=== PATIENT | male | born 1945 | race African-American/Black ===

== ENCOUNTER 2019-10-02 14:38 | Emergency (ER) | payer OTHER ==
[~2019-10-02] VITALS: Ht 182.9 cm; Wt 117.9 kg
[2019-10-02 14:50] VITALS: Ht 182.9 cm; Wt 117.9 kg
[2019-10-02 15:50] LABS: BASOPHIL % 0.6 % (0-2); PLATELET COUNT 188 x10^3mcL (130-400); RED CELL DISTRIBUTION WIDTH 14.5 % (11.5-14.5)
[2019-10-02 16:15] LABS: UA SPECIFIC GRAVITY 1.015 (1.005-1.035); microscopic required? YES; urine erythrocyte NEGATIVE (NEGATIVE)
[2019-10-02 16:16] LABS: CALCIUM 9.9 mg/dL (8.5-10.1); CARBON DIOXIDE 32.2 mmol/L (21-32); CHLORIDE SERUM 107 mmol/L (98-107); CREATININE SERUM 1.6 mg/dL (0.7-1.3); GLUCOSE SERUM 89 mg/dL (74-106); POTASSIUM SERUM 4.2 mmol/L (3.5-5.1); SODIUM SERUM 143 mmol/L (136-145)
[2019-10-02 16:20] LABS: ALKALINE PHOSPHATASE 106 U/L (46-116); ALT/SGPT 19 U/L (16-63); AST/SGOT 23 U/L (15-37); BILIRUBIN TOTAL 0.51 mg/dL (0.20-1.00); TOTAL PROTEIN, SERUM 7.7 g/dL (6.4-8.2)
[2019-10-02 16:32] LABS: AMPHETAMINE QUAL UR NONE DETECTED (See below)
[2019-10-02 16:33] LABS: ALBUMIN 3.3 g/dL (3.4-5.0)
[2019-10-02 21:46] VITALS: BP 145/80
== END 2019-10-02 21:47 ==
LOC: ED 14:38
PROVIDERS: Emergency Medicine
DX: I48.91 Unspecified atrial fibrillation (principal); I11.0 Hypertensive heart disease with heart failure; I50.9 Heart failure, unspecified; E11.9 Type 2 diabetes mellitus without complications; F03.90 Unspecified dementia, unspecified severity, without behavioral disturbance, psychotic disturbance, mood disturbance, and anxiety
CPT/HCPCS: 82962; 83880; G0480; J0696; J7030; J7060; Q0092